=== PATIENT | male | born 1935 | race Caucasian/White ===

== ENCOUNTER 2019-02-09 16:35 | Emergency (ER) | payer MEDICARE, OTHER ==
[~2019-02-09] VITALS: Ht 172.7 cm; Wt 130.2 kg
--- NOTE | 2019-02-09 16:58 | NUR ---
PT BIBRA FROM HOME FOR BLE EDEMA/REDNESS; PT AAOX4, PT TO BED 15, -SOB, NAD NOTED, VSS, PENDING MD BELLA
[2019-02-09] MEDS: IV NS 0.9% 1,000 ML BAG IV ONE ×2 (17:32→18:11)
[2019-02-09 17:37] LABS: EOSINOPHILS % (AUTO) 0.6 % (0.0-6.0); HEMATOCRIT 40 % (39-51); HEMOGLOBIN 12.1 g/dL (13.5-17.5); LYMPHOCYTES # (AUTO) 2.4 /CMM (0.8-4.8); LYMPHOCYTES % (AUTO) 2.4 % (20.0-44.0); MEAN CORPUSCULAR HGB CONC 30 g/dl (31.0-36.0); MEAN CORPUSCULAR VOLUME 75 fL (80-96); MONOCYTES # (AUTO) 13.6 /CMM (0.1-1.30); MONOCYTES % (AUTO) 13.4 % (2.0-12.0); NEUTROPHILS # (AUTO) 85.3 /CMM (1.8-8.9); NEUTROPHILS % (AUTO) 83.6 % (43.0-81.0); RED BLOOD CELL COUNT(AUTO) 5.35 MIL/uL (4.5-6.0)
[2019-02-09 17:42] LABS: PLATELET COUNT (AUTO) 10 /CMM (150-450)
[2019-02-09 17:45] LABS: CALCIUM, SERUM 8.6 mg/dL (8.5-10.1); CARBON DIOXIDE 21 mmol/L (21-32); CHLORIDE 98 mmol/L (98-107); CREATININE 1.3 mg/dL (0.6-1.3); GLUCOSE 152 mg/dL (74-106); POTASSIUM 3.7 mmol/L (3.5-5.1); SODIUM SERUM 130 mmol/L (136-145); UREA NITROGEN, BLOOD 15 mg/dL (7-18)
[2019-02-09 17:50] LABS: ALANINE AMINOTRANSFERASE 39 U/L (12-78); ALBUMIN 2.9 g/dL (3.4-5.0); ALKALINE PHOSPHATASE 118 U/L (46-116); ASPARTATE AMINOTRANSFERASE 38 U/L (15-37); BILIRUBIN,DIRECT 0.3 mg/dL (0.0-0.2)
[2019-02-09] MEDS ORDERED: IV NS 0.9% 1,000 ML BAG IV ONE (18:00)
[2019-02-09] MEDS ORDERED: PIPERACILLIN /TAZOBACTAM 3.375 G in IV D5W 50 ML IV ONE (18:00)
[2019-02-09] MEDS: VANCOMYCIN 1 GM in IV D5W 250 ML IV ONE (18:11)
--- NOTE | 2019-02-09 20:12 | NUR ---
CALLED [facility] TO [facility] TRANSFER THIS PT TO FACILITY WITH ONCOLOGY, FAXED FACESHEET AND CLINICALS TO [phone]
--- NOTE | 2019-02-09 20:20 | NUR ---
CALLED [facility] TRANSFER [facility], [facility] STATES NO BEDS AVAILABLE URI, FAXED FACESHEET AND CLINICALS TO [phone]
--- NOTE | 2019-02-09 20:42 | NUR ---
PER [facility] ALL [facility] ARE AT CAPACITY. REF#[id number]
[2019-02-09 20:52] LABS: BAND % (MANUAL) 6 % (0.0-5.0); EOSINOPHILS % (MANUAL) 3 % (0-4); LYMPHOCYTES % (MANUAL) 4 % (16-48); MONOCYTES % (MANUAL) 32 % (0-11.0); NEUTROPHILS % (MANUAL) 51 (42-76); PROMYELOCYTES % 2 % (0-0); REACTIVE LYMPHOCYTES 2 % (0-0)
--- NOTE | 2019-02-09 22:21 | NUR ---
URINE COLLECTED AND SENT TO LAB
[2019-02-09 22:36] LABS: APPEARANCE,URINE Clear (CLEAR); BILIRUBIN,URINE SMALL (NEGATIVE); BLOOD, URINE Moderate Ery/uL (NEGATIVE); COLOR,URINE Yellow (YELLOW); KETONES,URINE Trace (NEGATIVE); LEUKOCYTE ESTERASE ,URINE Negative (NEGATIVE); NITRITE, URINE Negative (NEGATIVE); PROTEIN,URINE 30 mg/dl (NEGATIVE); UGLUCOSE Negative (NEGATIVE)
[2019-02-09 23:13] LABS: BACTERIA,URINE Few /HPF (None Seen); SQUAMOUS EPITHELIAL CELL,UR Rare /HPF (None Seen); URINE AMORPHOUS URATE Many /HPF (None Seen); WBC,URINE 0-2 /HPF (0-3)
--- NOTE | 2019-02-09 23:20 | NUR ---
CALLED [facility], [facility] AT [facility], MAY CALL BACK HOURLY FOR UPDATED STATUS. TRANSFER CENTER
--- NOTE | 2019-02-09 23:32 | NUR ---
FORMERLY [facility] [phone] [place] AT [facility] STATES CURRENTLY NO BEDS AVAILABLE. SUGGESTS CALL BACK TOMORROW MORNING FOR UPDATED CENSUS.
[2019-02-10 01:00] VITALS: BP 154/94
[2019-02-10] MEDS ORDERED: ACETAMINOPHEN 325 MG TABLET ONE (01:07)
[2019-02-10] MEDS ORDERED: LORAZEPAM 0.5 MG TABLET ONE (01:07)
[2019-02-10 01:15] VITALS: BP 159/83
[2019-02-10] MEDS: LORAZEPAM 0.5 MG TABLET PO ONE (01:15)
[2019-02-10] MEDS: ACETAMINOPHEN 325 MG TABLET PO ONE (01:15)
--- NOTE | 2019-02-10 01:30 | NUR ---
[facility] TRANSFUS[facility] STARED AT 0100, SEE TRANSFUSION DOCUMENTATION AND CHART
--- NOTE | 2019-02-10 02:25 | NUR ---
[facility] CALLED, NO BEDS OR MD WILL BE AVAILABLE
--- NOTE | 2019-02-10 06:20 | NUR ---
[facility] CALLED FOR TRANSFER. STILL AT CAPACITY
--- NOTE | 2019-02-10 06:40 | NUR ---
Dr Anderson at bedside for eval. Pt a/ox4. No signs of distress noted. Will cont to monitor pt.
--- NOTE | 2019-02-10 07:30 | NUR ---
PT QUINTIN AMAYA - [phone]
--- NOTE | 2019-02-10 07:36 | NUR ---
PT ACCEPTED BY DR. CORNEJO AT [facility] PENDING BED ASSIGNMENT
[2019-02-10] MEDS: DESMOPRESSIN 20 MCG in IV NS 0.9% 50 ML IV ONE (07:38)
--- NOTE | 2019-02-10 07:55 | NUR ---
SPOKE WITH BUCK AT [facility] . SHE IS WAITING FOR A BED ASSIGNMENT AND WILL CALL BACK IN APPROXIMATELY 1 HOUR.
--- NOTE | 2019-02-10 08:00 | NUR ---
CALLED [facility] FOR TRANSPORT, ETA 1000
--- NOTE | 2019-02-10 08:06 | NUR ---
CALLED [facility], PLACED TRANSPORT ON [facility]
[2019-02-10] MEDS: LEVETIRACETAM (500MG) 500 MG in IV NS 0.9% 100 ML IV SCH (08:26)
[2019-02-10 08:27] VITALS: BP 136/89
--- NOTE | 2019-02-10 09:02 | NUR ---
SPOKE WITH BUCK AT [facility] . NO BED YET, THEY ARE STILL WORKIN ON BED PLACEMENT
--- NOTE | 2019-02-10 09:19 | NUR ---
CALLED [facility], ETA 15MIN
--- NOTE | 2019-02-10 09:19 | NUR ---
PT ACCEPTED TO [facility] ROOM 4513-1 NUMBER FOR REPORT IS [phone]
--- NOTE | 2019-02-10 09:36 | NUR ---
REPORT GIVEN TO [facility] [place] OF [facility] OF ICU
--- NOTE | 2019-02-10 09:57 | NUR ---
Patient Tranfers to outside Facility D/T SUBDURAL BLEED Physician: DR CORNEJO Location: [facility] VSS, [address]
== END 2019-02-10 10:02 ==
LOC: ER 16:37
DX: D69.6 Thrombocytopenia, unspecified (principal); D72.829 Elevated white blood cell count, unspecified; R65.10 Systemic inflammatory response syndrome (SIRS) of non-infectious origin without acute organ dysfunction; I62.00 Nontraumatic subdural hemorrhage, unspecified; R41.82 Altered mental status, unspecified; R00.0 Tachycardia, unspecified; D50.9 Iron deficiency anemia, unspecified; I87.8 Other specified disorders of veins; L30.9 Dermatitis, unspecified; M79.662 Pain in left lower leg; M79.661 Pain in right lower leg; E87.1 Hypo-osmolality and hyponatremia; E66.01 Morbid (severe) obesity due to excess calories; R79.1 Abnormal coagulation profile; I10 Essential (primary) hypertension; E11.9 Type 2 diabetes mellitus without complications; Z68.41 Body mass index [BMI] 40.0-44.9, adult; Z88.1 Allergy status to other antibiotic agents; Z88.8 Allergy status to other drugs, medicaments and biological substances
CPT/HCPCS: 36415; 36430; 70450; 71045; 73502; 80048; 80076; 81001; 83605; 83880; 84484; 85025; 85730; 86850; 87040 ×2; 87081; 87086; 93005; 93970; 96361; 96365; 96367; 99291; A4216; J1953; J2597; J3370; J7030 ×2; J7050; J7060; P9034; 81000-TC; J2543; P9016-BL